=== PATIENT | male | born 1955 | race Caucasian/White ===

== ENCOUNTER 2019-11-14 19:33 | Emergency (ER) | payer OTHER ==
[2019-11-14] MEDS ORDERED: Diphtheria,Pertussis(Acell),Tetanus Vaccine 0.5 ML SDV IM ONE (20:00)
--- NOTE | 2019-11-14 20:03 | EDM.PDOC ---
ED HPI GENERAL MEDICAL PROBLEM - General Chief Complaint: Skin Complaint Stated Complaint: FISH HOOK Time Seen by Provider: 11/14/19 19:58 Source of Information: Reports: Patient, RN Notes Reviewed History Limitations: Reports: No Limitations - History of Present Illness INITIAL COMMENTS - FREE TEXT/NARRATIVE: 64-year-old gentleman presents emergency department today with a fishhook and digit #1 left hand it is on the dorsal surface no functional complaints - Related Data Allergies Allergy/AdvReac Type Severity Reaction Status Date / Time No Known Allergies Allergy Verified 11/14/19 19:47 Home Meds: Home Meds NK [No Known Home Meds] 11/14/19 [History] Past Medical History Musculoskeletal History: Reports: Arthritis, Fracture - Infectious Disease History Infectious Disease History: Reports: Chicken Pox - Past Surgical History HEENT Surgical History: Reports: Naso-Sinus Surgery Musculoskeletal Surgical History: Reports: Shoulder Surgery Other Musculoskeletal Surgeries/Procedures:: right rotator cuff Social & Family History - Tobacco Use Smoking Status *Q: Never Smoker - Caffeine Use Caffeine Use: Reports: Coffee - Recreational Drug Use Recreational Drug Use: No ED ROS GENERAL - Review of Systems Review Of Systems: See Below Musculoskeletal: Reports: No Symptoms Skin: Reports: Wound ED EXAM, SKIN/RASH Exam: See Below Text/Narrative:: Examination the left hand he does have a single barbed fishhook that is embedded digit #1 in between the first phalange dorsal surface, radial pulses + 2 full range of motion of all digits without difficulty ED SKIN PROCEDURES - Foreign Body Removal Indication:: [place] digit #1 left hand dorsal surface Consent Obtained:: Patient Performing Doctor:: OfficerJosr Anesthesia Type: Local Findings:: Technique used he had started to cut into the skin for the pull-through technique so after local anesthesia continued with this procedure and removed the hook that way Complications:: No Course - Vital Signs Last Recorded V/S: Last Vital Signs Temp 98.3 F 11/14/19 19:50 Pulse 67 11/14/19 19:50 Resp 16 11/14/19 19:50 BP 127/92 H 11/14/19 19:50 Pulse Ox 97 11/14/19 19:50 - Orders/Labs/Meds Orders: Active Orders 24 hr Category Date Time Status Vaccines to be Administered [RC] PER UNIT ROUTINE Care 11/14/19 20:00 Active Meds: Medications Discontinued Medications Generic Name Dose Route Start Last Admin Trade Name Frida PRN Reason Stop Dose Admin Diphtheria/Tetanus/Acell Pertussis 0.5 ml 11/14/19 20:00 11/14/19 20:14 Adacel IM 11/14/19 20:01 0.5 ml .ONCE ONE Administration Lidocaine HCl 5 ml 11/14/19 20:00 11/14/19 20:14 Xylocaine-Mpf 1% INJECT 11/14/19 20:01 5 ml ONETIME ONE Administration Departure - Departure Time of Disposition: 20:22 Disposition: Home, Self-Care 01 Condition: Good Clinical Impression: [place] injury to finger Qualifiers: Encounter type: initial encounter Laterality: left Qualified Code(s): S69.92XA - Unspecified injury of left wrist, hand and finger(s), initial encounter - Discharge Information Referrals: PCP,None [Primary Care Provider] - Forms: ED Department Discharge Additional Instructions: Follow-up with primary care as needed Sepsis Event Note - Evaluation Sepsis Screening Result: No Definite Risk - Focused Exam Vital Signs: Vital Signs Temp Pulse Resp BP Pulse Ox 11/14/19 19:50 98.3 F 67 16 127/92 H 97 11/14/19 19:46 98.3 F 67 16 127/92 H 97 Date Exam was Performed: 11/14/19 Time Exam was Performed: 20:22 - My Orders Last 24 Hours: My Active Orders 11/14/19 20:00 Vaccines to be Administered [RC] PER UNIT ROUTINE - Assessment/Plan Last 24 Hours: My Active Orders 11/14/19 20:00 Vaccines to be Administered [RC] PER UNIT ROUTINE Plan: Assessment Acuity = acute Site and laterality = fishhook digit #1 left hand Etiology = single jony Manifestations = none Location of injury = Home Lab values = none Plan Follow-up with primary care as needed tetanus was updated today This note was dictated using [employer] voice recognition software please call with any questions on syntax or grammar.
== END 2019-11-14 20:37 | disposition home or self-care (01) ==
LOC: JP.ED 19:33
DX: S60.552A Superficial foreign body of left hand, initial encounter (principal); Z23 Encounter for immunization; W45.8XXA Other foreign body or object entering through skin, initial encounter
CPT/HCPCS: 64450; 90471; 90715; 99283; J2001